=== PATIENT | male | born 1995 | race Caucasian/White ===

== ENCOUNTER 2019-12-01 17:39 | Outpatient (REF) | payer OTHER, SELFPAY | END 2019-12-01 17:40 | disposition home or self-care (01) | LOC: HO.BBR 17:39 | PROVIDERS: Visit Provider Internal Medicine | DX: D75.1 Secondary polycythemia (principal) | CPT/HCPCS: 85018 ==

== ENCOUNTER 2020-01-12 17:43 | Outpatient (REF) | payer OTHER, SELFPAY | END 2020-01-12 17:44 | disposition home or self-care (01) | LOC: HO.BBR 17:43 | PROVIDERS: Visit Provider Internal Medicine | DX: D45 Polycythemia vera (principal) | CPT/HCPCS: 36415; 85018; 99195 ==

== ENCOUNTER 2020-03-07 14:55 | Outpatient (REF) | payer BC, SELFPAY | END 2020-03-07 14:56 | disposition home or self-care (01) | LOC: HO.BBR 14:55 | PROVIDERS: Visit Provider Internal Medicine | DX: D45 Polycythemia vera (principal) | CPT/HCPCS: 36415; 85018; 99195 ==

== ENCOUNTER 2020-04-26 14:48 | Outpatient (REF) | payer BC, SELFPAY | END 2020-04-26 14:49 | disposition home or self-care (01) | LOC: HO.BBR 14:48 | PROVIDERS: Visit Provider Internal Medicine | DX: D45 Polycythemia vera (principal) | CPT/HCPCS: 36415; 85018; 99195 ==

== ENCOUNTER 2020-08-09 14:40 | Outpatient (REF) | payer BC, SELFPAY | END 2020-08-09 14:41 | disposition home or self-care (01) | LOC: HO.BBR 14:40 | PROVIDERS: Visit Provider Internal Medicine | DX: D75.1 Secondary polycythemia (principal) | CPT/HCPCS: 36415; 85018; 99195 ==

== ENCOUNTER 2020-11-09 14:41 | Outpatient (REF) | payer BC, SELFPAY | END 2020-11-09 14:42 | disposition home or self-care (01) | LOC: HO.BBR 14:41 | PROVIDERS: Visit Provider Internal Medicine | DX: D75.1 Secondary polycythemia (principal) | CPT/HCPCS: 85018; 99195 ==

== ENCOUNTER 2021-01-11 14:35 | Outpatient (REF) | payer BC, SELFPAY | END 2021-01-11 14:36 | disposition home or self-care (01) | LOC: HO.BBR 14:35 | PROVIDERS: Visit Provider Internal Medicine | DX: D75.1 Secondary polycythemia (principal) | CPT/HCPCS: 85018; 99195 ==

== ENCOUNTER 2021-03-12 14:32 | Outpatient (REF) | payer BC, SELFPAY | END 2021-03-12 14:33 | disposition home or self-care (01) | LOC: HO.BBR 14:32 | PROVIDERS: Visit Provider Internal Medicine | DX: D75.1 Secondary polycythemia (principal) | CPT/HCPCS: 85014; 85018; 99195 ==

== ENCOUNTER 2021-05-10 14:29 | Outpatient (REF) | payer BC, SELFPAY | END 2021-05-10 14:30 | disposition home or self-care (01) | LOC: HO.BBR 14:29 | PROVIDERS: Visit Provider Internal Medicine | DX: D45 Polycythemia vera (principal) | CPT/HCPCS: 85018; 99195 ==

== ENCOUNTER 2021-07-12 14:30 | Outpatient (REF) | payer BC, SELFPAY | END 2021-07-12 14:31 | disposition home or self-care (01) | LOC: HO.BBR 14:30 | PROVIDERS: Visit Provider Internal Medicine | DX: D75.1 Secondary polycythemia (principal) | CPT/HCPCS: 85018; 99195 ==

== ENCOUNTER 2021-09-13 14:21 | Outpatient (REF) | payer BC, SELFPAY | END 2021-09-13 14:22 | disposition home or self-care (01) | LOC: HO.BBR 14:21 | PROVIDERS: Visit Provider Internal Medicine | DX: D75.1 Secondary polycythemia (principal) | CPT/HCPCS: 85018; 99195 ==

== ENCOUNTER 2021-11-15 14:34 | Outpatient (REF) | payer BC, SELFPAY | END 2021-11-15 14:35 | disposition home or self-care (01) | LOC: HO.BBR 14:34 | PROVIDERS: PCP Internal Medicine; Visit Provider Internal Medicine | DX: D75.1 Secondary polycythemia (principal) | CPT/HCPCS: 85018; 99195 ==

== ENCOUNTER 2022-01-15 14:31 | Outpatient (REF) | payer BC, SELFPAY | END 2022-01-15 14:32 | disposition home or self-care (01) | LOC: HO.BBR 14:31 | PROVIDERS: Visit Provider Internal Medicine | DX: D75.1 Secondary polycythemia (principal) | CPT/HCPCS: 85014; 85018; 99195 ==

== ENCOUNTER 2022-03-21 14:36 | Outpatient (REF) | payer BC, SELFPAY | END 2022-03-21 14:37 | disposition home or self-care (01) | LOC: HO.BBR 14:36 | PROVIDERS: Visit Provider Internal Medicine | DX: D75.1 Secondary polycythemia (principal) | CPT/HCPCS: 85018; 99195 ==

== ENCOUNTER 2022-05-23 14:39 | Outpatient (REF) | payer BC, SELFPAY | END 2022-05-23 14:40 | disposition home or self-care (01) | LOC: HO.BBR 14:39 | PROVIDERS: Visit Provider Internal Medicine | DX: D75.1 Secondary polycythemia (principal) | CPT/HCPCS: 85014; 85018; 99195 ==

== ENCOUNTER 2022-07-25 14:42 | Outpatient (REF) | payer BC, SELFPAY | END 2022-07-25 14:43 | disposition home or self-care (01) | LOC: HO.BBR 14:42 | PROVIDERS: Visit Provider Internal Medicine | DX: D75.1 Secondary polycythemia (principal) | CPT/HCPCS: 85018; 99195 ==

== ENCOUNTER 2022-09-26 08:55 | Outpatient (REF) | payer BC, SELFPAY | END 2022-09-26 08:56 | disposition home or self-care (01) | LOC: HO.BBR 08:55 | PROVIDERS: Visit Provider Internal Medicine | DX: D75.1 Secondary polycythemia (principal) | CPT/HCPCS: 85018; 99195 ==

== ENCOUNTER 2022-12-05 14:41 | Outpatient (REF) | payer BC, SELFPAY | END 2022-12-05 14:42 | disposition home or self-care (01) | LOC: HO.BBR 14:41 | PROVIDERS: PCP Internal Medicine; Visit Provider Internal Medicine | DX: D75.1 Secondary polycythemia (principal) | CPT/HCPCS: 85014; 85018; 99195 ==

== ENCOUNTER 2023-02-06 14:41 | Outpatient (REF) | payer BC, SELFPAY | END 2023-02-06 14:42 | disposition home or self-care (01) | LOC: HO.BBR 14:41 | PROVIDERS: PCP Internal Medicine; Visit Provider Internal Medicine | DX: D75.1 Secondary polycythemia (principal) | CPT/HCPCS: 85018; 99195 ==

== ENCOUNTER 2023-05-08 15:07 | Outpatient (REF) | payer BC, SELFPAY | END 2023-05-08 15:08 | disposition home or self-care (01) | LOC: HO.BBR 15:07 | PROVIDERS: PCP Internal Medicine; Visit Provider Internal Medicine | DX: D75.1 Secondary polycythemia (principal) | CPT/HCPCS: 85014; 85018; 99195 ==

== ENCOUNTER 2023-08-14 08:53 | Outpatient (REF) | payer BC, SELFPAY | END 2023-08-14 08:54 | disposition home or self-care (01) | LOC: HO.BBR 08:53 | PROVIDERS: PCP Internal Medicine; Visit Provider Internal Medicine | DX: D75.1 Secondary polycythemia (principal) | CPT/HCPCS: 85018; 99195 ==

== ENCOUNTER 2023-11-13 14:47 | Outpatient (REF) | payer BC, SELFPAY | END 2023-11-13 14:48 | disposition home or self-care (01) | LOC: HO.BBR 14:47 | PROVIDERS: PCP Internal Medicine; Visit Provider Internal Medicine | DX: D75.1 Secondary polycythemia (principal) | CPT/HCPCS: 85018; 99195 ==

== ENCOUNTER 2024-01-15 13:57 | Outpatient (REF) | payer BC, SELFPAY | END 2024-01-15 13:58 | disposition home or self-care (01) | LOC: HO.BBR 13:57 | PROVIDERS: PCP Internal Medicine; Visit Provider Internal Medicine | DX: D75.1 Secondary polycythemia (principal) | CPT/HCPCS: 85018; 99195 ==

== ENCOUNTER 2024-03-18 14:48 | Outpatient (REF) | payer BC, SELFPAY ==
--- OUTSIDE RECORDS SUMMARY | 2024-03-18 16:10 | XMS_ITS | Clinical Summary ---
Author Organization [facility] Address [id number] [place] [phone] Care Team Providers Care Circus Train Supervisor Name Role Phone Keshav Rayo MD Primary Care Provider [phone] Allergies No known active allergies Medications Medication Sig Dispensed Refills Start Date End Date Status aspirin 81 mg EC tablet Take 81 mg by mouth every 3 (three) days. Active DAILY MULTI-VITAMIN ORAL Take by mouth. Active Encounters Date Type Department Care Team Description 01/26/2024 [facility]phone [facility] [address] [facility] [place] [phone] Kaylynn Kate MA from Last 3 Months Social History Tobacco Use Types Packs/Day Years Used Date Smoking Tobacco: Never Smokeless Tobacco: Never Alcohol Use Standard Drinks/Week Comments No 0 (1 standard drink = 0.6 oz pur e alcohol) Sex and Gender Information Value Date Recorded Sex Assigned at Not on file Gender Identity Not on file Sexual Orientation Not on file Obstetrics History Last Filed Vital Signs Vital Sign Reading Time Taken Comments Blood Pressure 113/68 10/22/2023 1:43 PM EDT Sitting Left arm Pulse 72 10/22/2023 1:43 PM EDT Temperature - - Respiratory Rate - - Oxygen Saturation - - Inhaled Oxygen Concentration - - Weight 92.6 kg (204 lb 3.2 oz) 10/22/2023 1:43 PM EDT Height 182.9 cm (6') 03/05/2023 2:35 PM EST Body Mass Index 27.69 03/05/2023 2:35 PM EST Plan of Treatment Upcoming Encounters Date Type Department Care Team (Late st Contact Info) Description 05/03/2024 1:45 PM EDT Office Visit [facility] Hematology Oncology [address] [place] [phone] Keisha Hernandez MD [address] [place] [address] Health Maintenance Due Date Last Done Comments COVID-19 Vaccine (#1) 1998 Pneumococcal Vaccine: Pediat rics (0 to 5 Years) and At-Risk Patients (6 to 64 Years) (1 of 2 - PCV) 10/05/1999 DTaP,Tdap,and Td Vaccines (1 - Tdap) 2012 Hepatitis B Vaccines (1 of 3 - 19+ 3-dose series) 2012 Depression Screening 02/01/2022 HIV Screening 02/01/2022 Hepatitis C Screening 02/01/2022 Social Influencers of Health Screening 02/01/2022 Influenza Vaccine (#1) 2023 HIB Vaccines Aged Out No longer eligi ble based on patient's age to complete this topic HPV Vaccines Aged Out No longer eligi ble based on patient's age to complete this topic Hepatitis A Vaccines Aged Out No long er eligible based on patient's age to complete this topic IPV Vaccines Aged Out No longer eligi ble based on patient's age to complete this topic MMR Vaccines Aged Out No longer eligi ble based on patient's age to complete this topic Meningococcal ACWY Vaccine Aged Out N o longer eligible based on patient's age to complete this topic RSV Immunization Patients Un sabina 20 months Aged Out No longer eligible b ased on patient's age to complete this topic Varicella Vaccines Aged Out No longer eligible based on patient's age to complete this topic Care Teams Circus Train Supervisor Relationship Specialty Start Date End Date Keshav Rayo MD [address] [place] [phone] PCP - General Internal Medicine 9/25/18
--- OUTSIDE RECORDS SUMMARY | 2024-03-18 16:10 | XMS_ITS | Clinical Summary ---
Author Organization [facility] Address [address] [place] [address] Care Team Providers Care Top Knitter Name Role Phone Keshav Rayo MD Primary Care Provider Allergies No known active allergies Medications Medication Sig Dispensed Refills Start Date End Date Status aspirin EC 81 MG tablet Take 81 mg by mouth every 3 (three) days. 0 Active Multiple Vitamin (MULTI-VITAMIN DAILY PO) Take by mouth. 0 Active Active Problems No known active problems Social History Tobacco Use Types Packs/Day Years Used Date Smoking Tobacco: Never Smokeless Tobacco: Never Alcohol Use Standard Drinks/Week Comments No 0 (1 standard drink = 0.6 oz pur e alcohol) Sex and Gender Information Value Date Recorded Sex Assigned at Not on file Gender Identity Not on file Sexual Orientation Not on file Job Start Date Occupation Industry Not on file Not on file Not on file Last Filed Vital Signs Vital Sign Reading Time Taken Comments Blood Pressure 113/68 10/22/2023 1:43 PM EDT Pulse 72 10/22/2023 1:43 PM EDT Temperature 36.7 ??C (98.1 ??F) 10/22/2023 1:43 PM ED T Respiratory Rate - - Oxygen Saturation 99% 10/22/2023 1:43 PM EDT Inhaled Oxygen Concentration - - Weight 92.6 kg (204 lb 3.2 oz) 10/22/2023 1:43 P M EDT Height 182.9 cm (6') 03/05/2023 2:35 PM EST Body Mass Index 27.69 03/05/2023 2:35 PM EST Plan of Treatment Health Maintenance Due Date Last Done Comments Hepatitis B Vaccines (1 of 3 - 3-dose series) 1993 Hepatitis C Screening 1993 COVID-19 Vaccine (#1) 1998 Pneumococcal Vaccine (1 of 2 - PCV) 10/05/1999 Depression Screening 2005 Preventative Health Evaluation 10/05/2011 DTap / Tdap / Td (1 - Tdap) 2012 Influenza Vaccine (#1) 2023 RSV Ped < 20 months Aged Out No longe r eligible based on patient's age to complete this topic Care Teams Top Knitter Relationship Specialty Start Date End Date Keshav Rayo MD [address] [place] [phone] PCP - General Internal Medicine 11/17/17
== END 2024-03-18 14:49 | disposition home or self-care (01) ==
LOC: HO.BBR 14:48
PROVIDERS: PCP Internal Medicine; Visit Provider Internal Medicine
DX: D75.1 Secondary polycythemia (principal)
CPT/HCPCS: 85014; 85018; 99195

== ENCOUNTER 2024-05-20 14:42 | Outpatient (REF) | payer BC, SELFPAY | END 2024-05-20 14:43 | disposition home or self-care (01) | LOC: HO.BBR 14:42 | PROVIDERS: PCP Specialist; Visit Provider Internal Medicine | DX: D75.1 Secondary polycythemia (principal) | CPT/HCPCS: 85014; 85018; 99195 ==

== ENCOUNTER 2024-07-22 13:55 | Outpatient (REF) | payer BC, SELFPAY ==
--- OUTSIDE RECORDS SUMMARY | 2024-07-22 14:00 | XMS_ITS | Clinical Summary ---
Author Organization [facility] Address [address] [place] [address] Phone Care Team Providers Care Roving Hand Name Role Phone Keshav Rayo MD Primary Care Provider [phone] Allergies No known active allergies Medications aspirin 81 mg EC tablet Take 81 mg by mouth every 3 (three) days. Active DAILY MULTI-VITAMIN ORAL Take by mouth. Active Encounters Date Type Department Care Team Description 05/03/2024 1:45 PM EDT Office Visit [facility] Hematology Oncology [address] [place] [address] Keisha Hernandez MD Primary polycythemia (CMS/HCC V24, CMS/HCC V28) (Primary Dx) from Last 3 Months Social History Tobacco Use Types Packs/Day Years Used Date Smoking Tobacco: Never Smokeless Tobacco: Never Tobacco Cessation:Counseling Given: Not Answered Alcohol Use Standard Drinks/Week Comments No 0 (1 standard drink = 0.6 oz pur e alcohol) Sex and Gender Information Value Date Recorded Sex Assigned at Not on file Legal Sex Male 2:47 PM EST Gender Identity Not on file Sexual Orientation Not on file Obstetrics History Last Filed Vital Signs Vital Sign Reading Time Taken Comments Blood Pressure 113/71 05/03/2024 1:45 PM EDT Pulse 92 05/03/2024 1:45 PM EDT Temperature 37.1 ??C (98.8 ??F) 05/03/2024 1:45 PM ED T Respiratory Rate - - Oxygen Saturation 100% 05/03/2024 1:45 PM EDT Inhaled Oxygen Concentration - - Weight 89.8 kg (198 lb) 05/03/2024 1:45 PM EDT Height 182.9 cm (6') 03/05/2023 2:35 PM EST Body Mass Index 26.85 03/05/2023 2:35 PM EST Plan of Treatment Upcoming Encounters Date Type Department Care Team (Late st Contact Info) Description 02/07/2025 1:15 PM EST Office Visit [facility] Hematology Oncology [address] [place] [phone] Keisha Hernandez MD [address] [place] [address] Health Maintenance Due Date Last Done Comments Pneumococcal Vaccine: Pediatrics (0 to 5 Years) and At-Risk Patients (6 to 64 Years) (1 of 2 - PCV) 2012 Depression Screening 02/01/2022 HIV Screening 02/01/2022 Hepatitis C Screening 02/01/2022 Social Influencers of Health Screening 02/01/2022 COVID-19 Vaccine ( season) 2023 03/01/2021, 06/02/2020, 05/12/2020 Influenza Vaccine (Season Ended) 2024 11/14/2013, 11/11/2012, 11/11/2011, Additional history exists DTaP,Tdap,and Td Vaccines (9 - Td or Tdap) 10/02/2029 10/03/2019, 10/03/2009, 10/14/2004, Additional history exists Hepatitis B Vaccines Completed 09/01/1994, 1993, 1993 HIB Vaccines Completed 02/04/1995, 03/26, 02/04/1994, Additional history exists MMR Vaccines Completed 11/01/1997, 02/04/1995 IPV Vaccines Completed 10/16/1998, 03/26, 02/04/1994, Additional history exists Meningococcal ACWY Vaccine Completed 11/11/2011, HPV Vaccines Aged Out No longer eligi ble based on patient's age to complete this topic Hepatitis A Vaccines Aged Out No long er eligible based on patient's age to complete this topic Meningococcal B Vaccine Aged Out No l onger eligible based on patient's age to complete this topic RSV Immunization Patients Under 20 months Aged Out No longer eligible based on patient's age to complete this topic Varicella Vaccines Aged Out No longer eligible based on patient's age to complete this topic Procedures Procedure Name Priority Date/Time Associated Diagnosis Comments ..MISCELLANEOUS REFERENCE LAB TEST 05/03/2024 RBC MORPHOLOGY REVIEW Routine 04/25/2024 8:23 AM EST Polycythemia vera (CMS/HCC V24, CMS/HCC V28) CBC WITH AUTO DIFFERENTIAL Routine 04/25/2024 8:23 AM EST Polycythemia vera (CMS/HCC V24, CMS/HCC V28) ERYTHROPOIETIN Routine 04/25/2024 8:23 AM EST Polycythemia vera (CMS/HCC V24, CMS/HCC V28) CBC AND DIFFERENTIAL Routine 04/25/2024 8:23 AM EST Polycythemia vera (CMS/HCC V24, CMS/HCC V28) from Last 3 Months Results * Miscellaneous reference lab test (05/03/2024) us Provider Onbase LAB BLOOD ORDERABLES Final Re sult * (ABNORMAL) RBC morphology review (04/25/2024 8:23 AM EST) Rbc Morphology Consistent with indices Consistent with indices, Normal for [place] LAB HEMETOLOGY METHOD 04/25/2024 2:16 PM EST [facility] Platelet Morphology - WAM See Note(A) Normal LAB HEMETOLOGY METHOD 04/25/2024 2:16 PM EST [facility] Comment:PLT: Normal Blood Venous blood specimen / Unknown Venipuncture / Unknown 04/25/2024 8:23 AM EST 04/25/2024 12:36 PM EST Keisha Hernandez MD LAB BLOOD ORDERABLES Final R esult [facility] [address] [place] [address], [place] [phone] * (ABNORMAL) CBC auto differential (04/25/2024 8:23 AM EST) [facility] WBC 4.9 4.8 - 10.8 K/mcL LAB HEMETOLOGY METHOD 04/25/2024 2:[address] [facility] RBC 6.50(H) 4.50 - 5.50 M/mcL LAB HEMETOLOGY METHOD 04/25/2024 2:[address] [facility] Hemoglobin 17.3 13.5 - 17.5 g/dL LAB HEMETOLOGY METHOD 04/25/2024 2:[address] [facility] Hematocrit 54.4(H) 42.0 - 54.0 % LAB HEMETOLOGY METHOD 04/25/2024 2:[address] [facility] MCV 84.3 79.0 - 98.0 FL LAB HEMETOLOGY METHOD 04/25/2024 2:[address] [facility] MCH 26.8(L) 27.0 - 32.0 pcg LAB HEMETOLOGY METHOD 04/25/2024 2:[address] [facility] MCHC 31.8(L) 32.0 - 37.0 g/dL LAB HEMETOLOGY METHOD 04/25/2024 2:[address] [facility] RDW 15.6(H) 11.0 - 15.0 % LAB HEMETOLOGY METHOD 04/25/2024 2:[address] [facility] Platelets 536(H) 130 - 400 K/mcL LAB HEMETOLOGY METHOD 04/25/2024 2:[address] [facility] MPV 9.7 7.0 - 11.0 FL LAB HEMETOLOGY METHOD 04/25/2024 2:[address] [facility] NRBC 0.0 <1.0 % LAB HEMETOLOGY METHOD 04/25/2024 2:16 PM EST [facility] NRBC Absolute 0.00 <0.10 K/mcL LAB HEMETOLOGY METHOD 04/25/2024 2:[address] [facility] Neutrophils Relative 53.9 % LAB HEMETOLOGY METHOD 04/25/2024 2:[address] [facility] Comment:This is an appended report. These results have been appended to a previously preliminary verified report. Lymphocytes Relative 32.2 % LAB HEMETOLOGY METHOD 04/25/2024 2:[address] [facility] Comment:This is an appended report. These results have been appended to a previously preliminary verified report. Monocytes Relative 8.2 % LAB HEMETOLOGY METHOD 04/25/2024 2:[address] [facility] Comment:This is an appended report. These results have been appended to a previously preliminary verified report. Eosinophils Relative 4.1 % LAB HEMETOLOGY METHOD 04/25/2024 2:[address] [facility] Comment:This is an appended report. These results have been appended to a previously preliminary verified report. Basophils Relative 1.2 % LAB HEMETOLOGY METHOD 04/25/2024 2:[address] [facility] Comment:This is an appended report. These results have been appended to a previously preliminary verified report. Immature Granulocytes Relative 0.4 % LAB HEMETOLOGY METHOD 04/25/2024 2:[address] [facility] Comment:This is an appended report. These results have been appended to a previously preliminary verified report. Neutrophils Absolute 2.63 1.50 - 7.00 K/mcL LAB HEMETOLOGY METHOD 04/25/2024 2:[address] [facility] Comment:This is an appended report. These results have been appended to a previously preliminary verified report. Lymphocytes Absolute 1.57 1.00 - 5.00 K/mcL LAB HEMETOLOGY METHOD 04/25/2024 2:[address] [facility] Comment:This is an appended report. These results have been appended to a previously preliminary verified report. Monocytes Absolute 0.40 0.20 - 1.00 K/mcL LAB HEMETOLOGY METHOD 04/25/2024 2:16 PM EST [facility] Comment:This is an appended report. These results have been appended to a previously preliminary verified report. Eosinophils Absolute 0.20 0.00 - 0.50 K/[facility] HEMETOLOGY METHOD 04/25/2024 2:16 PM EST [facility] Comment:This is an appended report. These results have been appended to a previously preliminary verified report. Basophils Absolute 0.06 0.00 - 0.20 [facility] 04/25/2024 2:16 PM EST [facility] Comment:This is an appended report. These results have been appended to a previously preliminary verified report. Immature Granulocytes Absolute 0.02 0.00 - 0.03 K/[facility] HEMETOLOGY METHOD 04/25/2024 2:16 PM EST [facility] Comment:This is an appended report. These results have been appended to a previously preliminary verified report. Blood Venous blood specimen / Unknown Venipuncture / Unknown 04/25/2024 8:23 AM EST 04/25/2024 12:36 PM EST Keisha Hernandez MD LAB BLOOD ORDERABLES Final R esult [facility] [address] [place] [address], * Erythropoietin (04/25/2024 8:23 AM EST) Erythropoietin 10.9 2.6 - 18.5 mIU/mL 04/28/2024 11:43 AM EST [facility] Comment: Test performed at [facility], [address] , [place], [place] ??[address] ? [phone] Fernanda Hendrickson MD, PhD - Ad Clerk Blood Venous blood specimen / Unknown Venipuncture / Unknown 04/25/2024 8:23 AM EST 04/25/2024 12:37 PM EST Keisha Hernandez MD LAB BLOOD ORDERABLES Final R esult [facility] [address] [place] [address] from Last 3 Months Insurance [facility] Care Teams Roving Hand Relationship Specialty Start Date End Date Keshav Rayo MD [address] [place] [phone] PCP - General Internal Medicine 11/17/17
== END 2024-07-22 13:56 | disposition home or self-care (01) ==
LOC: HO.BBR 13:55
PROVIDERS: PCP Internal Medicine; Visit Provider Internal Medicine
DX: D75.1 Secondary polycythemia (principal)
CPT/HCPCS: 85018; 99195

== ENCOUNTER 2024-09-16 14:04 | Outpatient (REF) | payer BC, SELFPAY ==
--- OUTSIDE RECORDS SUMMARY | 2024-09-16 14:06 | XMS_ITS | Clinical Summary ---
Author Organization [facility] Address [address] [place] [address] Phone Care Team Providers Care Psych Therapist Name Role Phone Keshav Rayo MD Primary Care Provider [phone] Allergies No known active allergies Medications aspirin 81 mg EC tablet Take 81 mg by mouth every 3 (three) days. Active DAILY MULTI-VITAMIN ORAL Take by mouth. Active Social History Tobacco Use Types Packs/Day Years [...] 92 05/03/2024 1:45 PM EDT Temperature 37.1 C (98.8 F) 05/03/2024 1:45 PM EDT Respiratory Rate - - Oxygen Saturation 100% 05/03/2024 1:45 PM EDT Inhaled Oxygen Concentration - - Weight 89.8 kg (198 lb) 05/03/2024 1:45 PM EDT Height 182.9 cm (6') 03/05/2023 2:35 PM EST Body Mass Index 26.85 03/05/2023 2:35 PM EST Plan of Treatment Upcoming Encounters Date Type Department Care Team (Late st Contact Info) Description 02/07/2025 1:15 PM EST Office Visit [facility] Hematology Oncology [address] [place] [phone] Keisha Hernandez MD [address] [place] [address] Health Maintenance Due Date Last Done Comments HIV Screening 02/01/2022 Hepatitis C Screening 02/01/2022 Social Influencers of Health Screening 02/01/2022 COVID-19 Vaccine ( season) 2023 03/01/2021, 06/02/2020, 05/12/2020 Depression Screening 02/24/2024 Influenza Vaccine (#1) 2024 4, 11/11/2012, 11/11/2011, Additional history exists DTaP,Tdap,and Td [...] on patient's age to complete this topic Pneumococcal Vaccine: Pediatrics (0 to 5 Years) and At-Risk Patients (6 to 49 Years) Aged Out No longer eligible based on patient's age to complete this topic RSV Immunization Patients Under 20 months Aged Out No longer eligible based on patient's age to complete this topic Varicella Vaccines Aged Out No longer eligible based on patient's age to complete this topic [place] [address] [place] [address] Care Teams Psych Therapist Relationship Specialty Start Date End Date Keshav Rayo MD [address] [place] [phone] PCP - General Internal Medicine 11/17/17
--- OUTSIDE RECORDS SUMMARY | 2024-09-16 14:06 | XMS_ITS | Clinical Summary ---
Author Organization [facility] Address [address] [place] [address] Care Team Providers Care Senior Care Manager Name Role Phone Keshav Rayo MD Primary Care Provider [phone] Allergies No known active allergies Medications Medication [...] 72 10/22/2023 1:43 PM EDT Temperature 36.7 C (98.1 F) 10/22/2023 1:43 PM EDT Respiratory Rate - - Oxygen Saturation 99% [...] (1 - Tdap) 2012 Influenza Vaccine (#1) 2024 RSV Ped < 20 months Aged Out No longe r eligible based on patient's age to complete this topic Care Teams Senior Care Manager Relationship Specialty Start Date End Date Keshav Rayo MD [address] [place] [phone] PCP - General Internal Medicine 11/17/17
== END 2024-09-16 14:05 | disposition home or self-care (01) ==
LOC: HO.BBR 14:04
PROVIDERS: PCP Internal Medicine; Visit Provider Internal Medicine
DX: D75.1 Secondary polycythemia (principal)
CPT/HCPCS: 85014; 85018; 99195

== ENCOUNTER 2024-10-26 15:08 | Outpatient (REF) | payer BC, SELFPAY ==
--- OUTSIDE RECORDS SUMMARY | 2024-10-26 17:17 | XMS_ITS | Clinical Summary ---
Author Organization [facility] Address [address] [place] [address] Phone Care Team Providers Care Manager Data Name Role Phone Keshav Rayo MD Primary Care Provider [phone] Allergies No known active allergies Medications aspirin 81 mg EC tablet Take 81 mg by mouth every 3 (three) days. Active DAILY MULTI-VITAMIN ORAL Take by mouth. Active Encounters Date Type Department Care Team Description 10/06/2024 Telephone [facility] [address] [phone] Keisha Hernandez MD from Last 3 Months Social History Tobacco [...] Description 02/07/2025 1:15 PM EST Office Visit [facility] Hematology Oncology [address] [place] [phone] Keisha Hernandez MD [address] [place] [address] Health Maintenance Due Date Last Done Comments [...] patient's age to complete this topic Insurance [facility] Care Teams Manager Data Relationship Specialty Start Date End Date Keshav Rayo MD [address] [place] [phone] PCP - General Internal Medicine 11/17/17
--- OUTSIDE RECORDS SUMMARY | 2024-10-26 17:17 | XMS_ITS | Clinical Summary ---
Author Organization [facility] Address [address] [place] [address] Care Team Providers Care School Age Teacher Name Role Phone Keshav Rayo MD Primary Care Provider [phone] Allergies No known active allergies Medications Medication [...] age to complete this topic Care Teams School Age Teacher Relationship Specialty Start Date End Date Keshav Rayo MD [address] [place] [phone] PCP - General Internal Medicine 11/17/17
== END 2024-10-26 15:09 | disposition home or self-care (01) ==
LOC: HO.BBR 15:08
PROVIDERS: PCP Internal Medicine; Visit Provider Internal Medicine
DX: D45 Polycythemia vera (principal)
CPT/HCPCS: 85018; 99195

== ENCOUNTER 2024-12-30 14:34 | Outpatient (REF) | payer BC, SELFPAY ==
--- OUTSIDE RECORDS SUMMARY | 2024-12-30 16:08 | XMS_ITS | Clinical Summary ---
Author Organization [facility] Address [address] [place] [address] Care Team Providers Care Fibreglass Laminator Name Role Phone Keshav Rayo MD Primary Care Provider [phone] Allergies No known active allergies Medications Medication [...] Hepatitis C Screening 1993 COVID-19 Vaccine (#1) 04/06/1994 Depression Screening 2005 Preventative Health Evaluation 10/05/2011 DTap / Tdap / Td (1 - Tdap) 2012 Influenza Vaccine (#1) 2024 Pneumococcal Vaccine Aged Out No long er eligible based on patient's age to complete this topic RSV Ped < 20 months Aged Out No longe r eligible based on patient's age to complete this topic Care Teams Fibreglass Laminator Relationship Specialty Start Date End Date Keshav Rayo MD [address] [place] [phone] PCP - General Internal Medicine 11/17/17
--- OUTSIDE RECORDS SUMMARY | 2024-12-30 16:08 | XMS_ITS | Data Portability ---
Author Organization [place] - [facility], [facility][1] Address [address] [place] [address] Assessment Encounter Date Assessment Date Assessment LastModified by Organization Details LastModified Time 03/10/2014 03/10/2014 Uri impacted wax- Symptomatic care. Call if worse/ not improving or with any concerns jyunis Not available 03/10/2014 11:35:31 12/25/2014 12/25/2014 Healthy 19 year old. Nl growth and dev discussed next year will be last PE jyunis Not available 12/25/2014 15:10:20 08/06/2015 08/06/2015 impacted wax L ear- wax removed URI- Symptomatic care. Call if worse/ not improving or with any concerns jyunis Not available 08/06/2015 12:27:53 11/23/2015 11/23/2015 Uri- Symptomatic care. Call if worse/ not improving or with any concerns jyunis Not available 11/23/2015 12:05:26 01/03/2016 01/03/2016 Healthy 20 year old. Nl growth and dev jyunis Not available 01/03/2016 14:44:44 Plan of Treatment Reminders Order Date Submit Date Provider Last Modified By Organization Details Last Modified Time Details Appointments None recorde d. Lab CT + NG DNA, PCR, urine 016 01/03/20 16 DBA_PATCH_ [id number] [facility] (Centralized Electronic Ordering - All Locations), Patient Can Go To The Location Of Their Choice, [id number] 04:10:13 Referral None recorde d. Procedures None recorde d. Surgeries None recorde d. Imaging None recorde d. Medication Orders None recorde d. Patient TargetsNo targets recorded. Patient Instructions Encounter Date Encounter Id Patient Instructions Last Modified By Organization Details Last Modified Time 12/25/2014 [id number] patient health questionnaire depression assessment* BILL Not available 12/25/2014 15:21:08 Well Visit, Ages 18 to 65: Care Instructions BILL Not available 03/26/2015 02:15:19 [id number] program - 5 fruits & veggies BILL Not available 03/26/2015 02:15:17 08/06/2015 [id number] upper respirator y infection (cold): care instructions BILL Not available 08/08/2015 02:15:53 11/23/2015 [id number] upper respirator y infection (cold): care instructions BILL Not available 11/25/2015 02:08:51 01/03/2016 [id number] 2566 program - 5 fruits & veggies DBA_PATCH_20 [id number] Not available 02/09/2016 04:10:03 5210 program - 1 hour of exercise DBA_PATCH_20 [id number] Not available 02/09/2016 04:10:03 patient health questionnaire depression assessment* DBA_PATCH_20 [id number] Not available 02/09/2016 04:10:13 immunization: wh at you need to know DBA_PATCH_20 [id number] Not available 02/09/2016 04:10:13 Reason for Referral None Reported. Results Created Date Observation Date Name Description Value Unit Range Abnormal Flag Note LastModifiedBy Organization Detail LastModifiedTime 01/03/20 16 01/03/2016 patie nt healt h quest ionna david depre ssion asses sment * PHQ-9 negati ve Not Available [facility] [address] [place] [address], [id number], 01/03/2016 13:04:26 12/26/19 15 12/25/2014 patie nt healt h quest ionna david depre ssion asses sment * PHQ-9 negati ve Not Available [facility] [address] [place] [address], [phone], 12/25/2014 14:47:06 01/03/20 16 01/04/2016 CT + NG DNA, PCR, urine urine chlamydia amp probe NEGAT ELIZABETH No Chlam ydia Trach omati s RNA detec leida in this patie nt's sampl e (REFE RENCE RANGE /NORM AL VALUE : NOT DETEC LEIDA) Not Available [facility] (Centralized Electronic Ordering - All Locations) Patient Can Go To The Location Of Their Choice, [id number] 01/04/2016 14:53:10 01/03/20 16 01/04/2016 CT + NG DNA, PCR, urine urine GC amp probe NEGAT ELIZABETH No Neiss eria Gonor rhoea e RNA detec leida in this patie nt's sampl e (REFE RENCE RANGE /NORM AL VALUE : NOT DETEC LEIDA) NOTE: This test uses trans cript ion-m ediat ed ampli ficat ion metho d to detec t rRNA from C.Tra choma tis and N.Brett orrho eae. A negat elizabeth resul t does not precl ude infec tion. In the case of a negat elizabeth urine resul t, testi ng of an endoc ervic al(fe male) or ureth ral(m ministerio) speci men is recom heidi d if there is high clini tobias suspi cion of infec tion. The perfo rmanc e jazmin cteri stics of this test have not been evalu ated in child raulito. The Aptim a Combo 2 assay is not inten ded for the evalu ation of suspe cted sexua l abuse or for other medic o-leg al indic ation s. The order ing provi sabina shoul d asses s if the patie nt had conse nsual sex witho ut risk of sexua l abuse . [facility] if neede d. Conta ct phone numbe r . Thera peuti c failu re or succe ss canno t be deter mined with the Aptim a Combo 2 assay since nucle ic acid may persi st follo wing appro priat e antim icrob ial thera py. The Cente rs for Disea se Contr ol and Preve ntion ([facility]) recom mends confi rmato ry retes ting using cultu re or a diffe rent nucle ic acid ampli ficat ion test when posit elizabeth resul ts occur , if indic ated. Not Available [facility] (Centralized Electronic Ordering - All Locations) Patient Can Go To The Location Of Their Choice, [id number] 01/04/2016 14:53:10 Result Notes None recorded. Problems Name Problem SNOMED Code Status Onset Date Resolution Date Notes Provider Name and Address Organization Details Recorded Time Upper respirator y infection 84092581 Completed 12/25/2014 Pavan Lacy MD [address] [place] [address], , [facility] 5 15:00:25 Impacted cerumen 66319138 Completed 12/25/2014 Pavan Lacy MD [address] [place] [address], , [facility] 5 15:00:25 Pain in throat 675926172 Completed 11/11/2011 Not Available [facility] 3 03:01:02 Acquired deformity of ankle AND/OR foot 47181872 Completed 11/11/2011 Not Available [facility] 3 03:01:02 Herpes zoster 8311857 Active Not Available [facility] 3 03:01:02 Otalgia 81124986 Completed 11/11/2011 Not Available [facility] 3 03:01:02 Acute non-suppur ative serous otitis media 845817681 Completed 11/11/2011 Not Available [facility] 3 03:01:02 Allergy Completed 200611/11/2011 Not Available [facility] 3 03:01:02 Acute upper respirator y infection 19801045 Completed 200711/11/2011 Not Available [facility] 3 03:01:02 Acute conjunctiv itis 81090818 Completed 200711/11/2011 Not Available [facility] 3 03:01:02 Allergic rhinitis 66662917 Active 2007 Not Available [facility] 3 03:01:02 Chronic sinusitis 27640030 Completed 200711/11/2011 Not Available [facility] 3 03:01:02 Otitis externa 5364452 Completed 200711/11/2011 Not Available [facility] 3 03:01:02 Dysfunctio n of eustachian tube 45328534 Completed 200711/11/2011 Not Available [facility] 3 03:01:02 Non-suppur ative otitis media with eustachian tube disorder 041843281 Completed 200711/11/2011 Not Available [facility] 3 03:01:02 Otitis media 48868526 Completed 200711/11/2011 Not Available [facility] 3 03:01:02 Verruca vulgaris 77340678 Completed 200811/11/2011 Not Available [facility] 3 03:01:02 Problem Notes None recorded. Procedures Surgical History Date Name Laterality Status Provider Name and Address Organization Details Recorded Time 6 Wax Removal with Curette Unilateral With or Without Irrigation completed Pavan Lacy MD [address] [place] [address], , [facility] 08/06/2015 12:27:36 5 Wax Removal with Curette Unilateral With or Without Irrigation completed Pavan Lacy MD [address] [place] [address], , [facility] 03/10/2014 11:35:31 Imaging Results None recorded. Procedure Notes None recorded. Medical Equipment None Reported. Allergies No known drug allergies Medications Name Sig Start Date Stop Date Status Note LastModified by Organization Details LastModified Time fluticasone spr 50mcg active Not Available Not Available No t Available azithromyci n tab 250mg active Not Available Not Available Not Available Zovirax 400 mg tablet Take 1 tablet 4 times a day by oral route for 7 days. 12/25 completed Not Available Not Available Not Available Zithromax Z-Ubaldo 250 mg tablet Take 2 tablets (500 mg) by oral route once daily for 1 day then 1 tablet (250 mg) by oral route once daily for 4 days 2010 active Not Available Not Available Not Avai lable Flonase 50 mcg/actuati on nasal spray,suspe nsion [place] 2 spray in each nostril by intranasa l route once daily-can decrease to 1 spray when doing well 2010 active Not Available Not Available Not Avai lable Vitals Date Recorded Body height Body mass index (BMI) Body weight Systolic And Diastolic Provider Name and Address Organization Details Last Updated DateTime 12/25/2014 182.245 cm 25.3 kg/m2 59996.588 45 g 102/58 mm[Hg] Bonny Vogt M.A. [facility] 12/25/2014 14:54:13 Date Recorded Body height Body weight Body mass index (BMI) Systolic And Diastolic Provider Name and Address Organization Details Last Updated DateTime 01/03/2016 182.24 cm 39706.33 g 26.4 kg/m2 118/64 mm[Hg] Bonny Vogt M.A. [facility] 01/03/2016 13:09:27 Social History Question Answer Notes LastModified by Organizat ion Details LastModified Time Tobacco Smoking Status Never Smoker [facility] 11/11/2011 14:18:43 What Type Of Diet Are You Following? REGULAR 05 Information not available 12/28/2010 Education 11 DBA_PATCH 1 05 Information not available 12/28/2010 Parent's Marital Status 05 Information not available 12/28/2010 Home Situation Both Parents Information not available 12/28/2010 Siblings Names And Birthdates Pavan 10/09/88 05 Information not available 12/28/2010 Passive Smoke Exposure No 05 Information not available 12/28/2010 Year In School 11 Information not available 12/28/2010 Parent's Name Tamra Information not available 12/28/2010 Parent's Name Kervin Information not available 12/28/2010 Seat Belts Used Routinely Yes 05 Information not available 12/28/2010 Are You Passively Exposed To Smoke? No slevin Information not available 11/14/2013 What Types Of Sporting Activities Do You Participate In? BASKETBALL 05 Information not available 12/28/2010 General Stress Level Low Information not available 12/28/2010 Sex: Unknown Functional Status Question Answer Note LastModified by Organizat ion Details LastModified Time What is your exercise level? Moderate DBA_PATCH_[id number] Information n ot available 12/28/2010 Mental Status None recorded. Family History Relationship Description Onset Age of this Age Resolved Age Notes LastModified by Organization Details LastModified Time Mother Diabetes mellitus TYPE -I (previ ously record ed as Diabet es) slevin Not available 12/25/2014 14:47:06 Father Hypercholest erolemia previo usly record ed as Elevat ed Choles terol slevin Not available 12/25/2014 14:47:06 Brother Allergy previo usly record ed as Allerg ies slevin Not available 12/25/2014 14:47:06 Notes:mo has DM-I - ON INSUL IN BID updated 01/03/16 Medical History Condition Response CARDIAC PROBLEMS N ALLERGIC AND IMMUNOLOGIC PROBLEMS N DEVELOPMENTAL/ BEHAVIORAL PROBLEMS N MUSCLE/ JOINT/ BONE PROBLEMS N DERMATOLOGIC PROBLEMS/ECZEMA N HOSPITALIZATIONS N ENT PROBLEMS/OTITIS MEDIA/ CHRONIC N RENAL PROBLEMS N HEMATOLOGIC /ONCOLOGIC PROBLEMS N ACCIDENTS INJURIES N NEUROLOGIC/ SEIZURES OR CONVULSIONS N ADHD N ENDOCRINE PROBLEMS/DIABETES N HEADACHES/MIGRAINES/DIZZINESS N GI PROBLEMS/CONSTIPATION N CONGENITAL AND GENETIC PROBLEMS N ORTHOPEDIC PROBLEMS N CHICKEN POX / VARICELLA HISTORY or POSIT ELIZABETH TITER N PUMONARY PROBLEMS/ ASTHMA N PSYCH PROBLEMS N Immunizations Vaccine Type Date Status Note Provider Nam e and Address Organization Details Recorded Time meningococcal ACWY, unspecified formulation 5 completed Not Available [facility] 12/28/2010 03:18:00 Influenza, split virus, trivalent, preservative 2 completed Not Available [facility] 03/12/2019 02:35:23 meningococcal MCV4P 2 completed Not Available [facility] 03/12/2019 02:33:31 Hib, unspecified formulation 4 completed Not Available [facility] 12/28/2010 03:19:09 OPV, trivalent 5 completed Not Available [facility] 12/28/2010 03:19:09 DTP 5 completed Not Available [facility] 12/28/2010 03:19:09 Hep B, adolescent or pediatric 4 completed Not Available [facility] 12/28/2010 03:19:09 DTP 4 completed Not Available [facility] 12/28/2010 03:19:09 Hep B, adolescent or pediatric 5 completed Not Available [facility] 12/28/2010 03:19:09 DTP 4 completed Not Available [facility] 12/28/2010 03:19:09 Hep B, adolescent or pediatric 4 completed Not Available [facility] 12/28/2010 03:19:09 Hib, unspecified formulation 5 completed Not Available [facility] 12/28/2010 03:19:09 OPV, trivalent 4 completed Not Available [facility] 12/28/2010 03:19:09 DTP 6 completed Not Available [facility] 12/28/2010 03:19:09 MMR 5 completed Not Available [facility] 12/28/2010 03:19:09 Hib, unspecified formulation 4 completed Not Available [facility] 12/28/2010 03:19:09 Hib, unspecified formulation 5 completed Not Available [facility] 12/28/2010 03:19:09 Td (adult) 5 completed Not Available [facility] 12/28/2010 03:19:09 OPV, trivalent 9 completed Not Available [facility] 12/28/2010 03:19:09 DTaP 9 completed Not Available [facility] 12/28/2010 03:19:09 MMR 8 completed Not Available [facility] 12/28/2010 03:19:09 OPV, trivalent 4 completed Not Available [facility] 12/28/2010 03:19:09 Influenza, split virus, quadrivalent, PF 3 completed Not Available [facility] 03/12/2019 02:35:35 Influenza, split virus, quadrivalent, PF 4 completed Not Available [facility] 03/12/2019 02:36:31 influenza, unspecified formulation 9 completed Not Available [facility] 12/28/2010 03:17:07 Tdap 0 completed Not Available [facility] 03/12/2019 02:33:40 Past Encounters Encounter ID Performer Location Encounter Start Date Encounter Closed Date Diagnosis/Indication Diagnosis SNOMED-CT Code Diagnosis ICD10 Code Diagnosis IMO Codes Diagnosis Note [id number] Joey Shook MD [facility] [address] [place] [address] 11/11/2006 14:55:22 11/11/2006 15:31:08 [id number] Joey Shook MD [facility] [address] [place] [address] 04/23/2007 09:01:01 04/23/2007 09:37:23 [id number] Joey Shook MD [facility] [address] [place] [address] 09/27/2007 13:56:55 11/02/2008 01:23:50 [id number] Joey Shook MD [facility] [address] [place] [address] 10/18/2007 09:45:57 10/18/2007 10:28:39 [id number] Mario Yoo MD [facility] [address] [place] [address] 10/28/2007 14:12:51 11/02/2008 01:23:50 [id number] Joey Shook MD [facility] [address] [place] [address] 11/09/2007 16:12:45 11/02/2008 01:23:50 [id number] Mario Yoo MD [facility] [address] [place] [address] 02/07/2008 15:44:13 11/02/2008 01:23:50 [id number] Pavan Lacy MD [facility] [address] [place] [address] 03/25/2008 09:07:30 03/25/2008 09:34:33 [id number] Joey Shook MD [facility] [address] [place] [address] 05/09/2008 13:30:43 05/09/2008 14:08:56 [id number] Joey Shook MD [facility] [address] [place] [address] 08/14/2008 14:37:27 08/14/2008 15:23:22 [id number] Savita Farfan MD [facility] [address] [place] [address] 08/28/2008 13:52:53 08/28/2008 14:29:20 [id number] Joey Shook MD [facility] [address] [place] [address] 11/13/2008 14:01:27 11/13/2008 15:08:27 [id number] Joey Shook MD [facility] [address] [place] [address] 12/18/2008 14:38:44 12/18/2008 15:26:02 [id number] Joey Shook MD [facility] [address] [place] [address] 05/08/2009 13:28:29 05/08/2009 14:33:16 [id number] Pavan Lacy MD [facility] [address] [place] [address] 06/04/2009 14:09:43 06/04/2009 17:46:41 [id number] Joey Shook MD [facility] [address] [place] [address] 10/03/2009 15:24:00 10/03/2009 16:38:24 [id number] Joey Shook MD [facility] [address] [place] [address] 04/23/2010 17:16:34 04/23/2010 17:52:34 [id number] Joey Shook MD [facility] [address] [place] [address] 08/06/2010 12:01:19 08/06/2010 13:13:12 [id number] Ana Petty MD [facility] [address] [place] [address] 09/02/2010 14:31:42 09/02/2010 15:14:24 [id number] Joey Shook MD [address] [address] 2010 15:03:44 2010 17:11:35 [id number] Pavan Lacy MD [facility] [address] [address] 11/11/2011 14:11:56 11/11/2011 14:48:19 [id number] Pavan Lacy MD [facility] [address] [address] 11/11/2012 08:56:29 11/11/2012 09:49:34 Adult health examination 248825631 Influenza vaccine needed 9948265463 106 [id number] Pavan Lacy MD [facility] [address] [address] 11/14/2013 09:14:53 11/14/2013 10:00:35 Adult health examination 768647575 [id number] Pavan Lacy MD [facility] [address] [address] 03/10/2014 11:11:36 03/10/2014 11:36:08 Upper respiratory infection 94072972 Impacted cerumen 71902068 [id number] Pavan Lacy MD [facility] [address] [address] 12/25/2014 14:41:47 12/25/2014 15:22:04 Adult health examination 460343900 Z00.00 [id number] Pavan Lacy MD [facility] [address] [address] 08/06/2015 10:38:04 08/06/2015 12:28:59 Upper respiratory infection 47947425 J06.9 Impacted cerumen 2310071 6 H61.22 [id number] Pavan Lacy MD [facility] [address] [address] 11/23/2015 11:36:29 11/23/2015 12:44:11 Upper respiratory infection 37741083 J06.9 [id number] Pavan Lacy MD [facility] [address] [facility] [place] [address] 01/03/2016 13:02:24 01/03/2016 14:45:20 Adult health examination 318739746 Z00.00 Health Concerns Section Related Observation LastModified by Organization Detai ls LastModified Time None Recorded Concern Status LastModified by Organization Details LastModified Time None Recorded Advance Directives Directive None Recorded Payers Insurance Date Sequence Insurance Name Policy Number Policy Mullen Covered Member ID Mullen Member ID Guarantor Name 01/03/2016 1 [facility] [id number] Kervin Peteio [id number] Kervin Dustin Notes Date Note Type Note Provider Name and Address Organization Details Recorded Time 03/10/2014 text/html RS Sick Visit Narrative HistoryReported by PatientRight ear pain since 2 d ago.Congested w/st 3-4 d ago.ST is getting better.Right jaw and right ear hurt. Afeb. OTC cold med hasn't helped. cold is a bit better. did not sleep well from pain. Pavan Lacy MD [address] [place] [address], , [facility] 03/10/2014 11:35:37 12/25/2014 text/html ROS as noted in the HPI Pt declines HPV and Flu today Pavan Lacy MD [address] [place] [address], , [facility] 12/25/2014 15:21:29 08/06/2015 text/html RS Sick Visit Narrative HistoryReported by PatientC/O L ear blocked and sinus congestion x approx 5 days, started to become painful yest. No drainage from ear or tinnitus. Afeb. No V/D or cough. Normal appetite, sleep and energy level. No meds taken. congestion not worse. Pavan Lacy MD [address] [place] [address], , [facility] 08/06/2015 12:28:39 11/23/2015 text/html Left ear pain w/nasal congestion x 2-3 days. Afeb. Eating and sleeping ok He takes ClaritinNo VD. Gd po. Is a bit better today. Pavan Lacy MD [address] [place], [place], , [facility] 11/23/2015 12:43:58 01/03/2016 text/html Pt declines HPV and Flu shots Pavan Lacy MD [address] [place], [place], , [facility] 01/03/2016 14:44:50
== END 2024-12-30 14:35 | disposition home or self-care (01) ==
LOC: HO.BBR 14:34
PROVIDERS: PCP Internal Medicine; Visit Provider Internal Medicine
DX: D45 Polycythemia vera (principal)
CPT/HCPCS: 85014; 85018; 99195